=== PATIENT | male | born 1955 | race Caucasian/White ===

== ENCOUNTER → 2016-08-19 | Outpatient (CLI) | payer OTHER ==
[~2016-08-19] MED LIST: KETO10TA PO; MULTCHW PO; OXYC-57 PO
--- NOTE | 2016-08-19 11:51 | DIAGNOSTIC IMAGING REPORT ---
MRI LEFT SHOULDER NO CONTRAST CLINICAL HISTORY: Left shoulder pain COMPARISON STUDY: No previous studies for comparison. FINDINGS: Imaging was performed the sagittal, coronal, and axial planes. There is a small suprapatellar joint effusion. There is medial subluxation of the bicipital tendon. There are osteoarthritic changes present within the glenohumeral joint. There is moderate supraspinatus tendinopathy. No full-thickness tear is visualized. There is no tendinous retraction. There is a partial-thickness subscapularis tear. IMPRESSION: 1. No evidence of pathologic marrow replacement 2. Medial subluxation the bicipital tendon 3. Joint effusion 4. Supraspinatus tendinopathy. No evidence of full-thickness tear. No evidence of tendinous retraction. 5. Partial-thickness subscapularis tear Electronically signed by: Devin Ingram M.D. 08/19/2016 11:49 AM Dictated Date/Time: 08/19/2016 11:45 AM
== END | disposition home or self-care (01) ==
LOC: C.MRIBC 07:37
PROVIDERS: ATTEND Orthopaedic Surgery
DX: M25.511 Pain in right shoulder (principal)

== ENCOUNTER → 2016-09-23 | Outpatient (CLI) | payer OTHER ==
[2016-09-23 16:37] LABS: BASO % 0.7 %; BASO ABS # 0.04 K/uL (0-0.2); COMPLETE YES; EOS % 3.5 %; HEMATOCRIT 42.9 % (42-52); IG% 0.2 %; LYMPH % 40.1 %; MEAN CELL VOLUME 85.8 fL (80-100); MEAN CORPUSCULAR HGB CONC 32.6 g/dl (32-36); MEAN PLATELET VOLUME 10.2 fL (7.4-10.4); MONO % 12.7 %; NEUT % 42.8 %; PLATELET COUNT 219 K/uL (130-400); WHITE BLOOD COUNT 5.74 K/uL (4.8-10.8)
[2016-09-23 17:29] LABS: BLOOD UREA NITROGEN 18 mg/dl (7-18); BUN/CREATININE RATIO 14.7 (10-20); CALCIUM 9.1 mg/dl (8.5-10.1); CARBON DIOXIDE 29 mmol/L (21-32); CHLORIDE 107 mmol/L (98-107); GLUCOSE 122 mg/dl (70-99); POTASSIUM 3.8 mmol/L (3.5-5.1); SODIUM 142 mmol/L (136-145)
== END | disposition home or self-care (01) ==
LOC: C.CPL 16:12
PROVIDERS: ATTEND Orthopaedic Surgery
DX: M25.512 Pain in left shoulder (principal); Z01.812 Encounter for preprocedural laboratory examination; Z01.810 Encounter for preprocedural cardiovascular examination

== ENCOUNTER → 2016-10-08 | Day surgery (SDC) | payer OTHER ==
[2016-09-22 08:05] VITALS: Ht 180.3 cm; Wt 88.6 kg
[~2016-10-08] VITALS: Ht 180.3 cm; Wt 88.6 kg
[~2016-10-08] MED LIST changes: +ATROPINE SULFATE 0.1 MG/ML 5ML SYR IV PRN; +BUPIVACAINE/EPINEPHRINE 0.25% 1:200,000 30 ML VIAL ONE; +CEFAZOLIN 2000 MG/60 ML D5W IV SCH; +DEXAMETHASONE SOD INJ 4 MG/ML VIAL ONE; +EpHEDrine SULFATE 50MG/5ML SYR ONE; +EpHEDrine SULFATE INJ 50 MG/ML AMP ONE; +EpINEphrine INJ 1MG/ML AMP 1 MG/ML AMP ONE; +FENTANYL CITRATE INJ 50 MCG/1 ML 2 ML VIAL IV PRN; +FENTANYL CITRATE INJ 50 MCG/1 ML 2 ML VIAL ONE; +GLYCOPYRROLATE INJ 0.2 MG/ML VIAL ONE; +KETOROLAC TROMETHAMINE 30 MG/ML VIAL IV. PRN; +LABETALOL HCL IV 5 MG/ML 20ML IV PRN; +LACTATED RINGER'S 1000ML 1,000 ML IV SCH; +LIDOCAINE HCL 2% 2 ML VIAL (20MG/ML) ONE; +MIDAZOLAM HCL 1 MG/ML 2ML VIAL ONE; +NEOSTIGMINE METHYLSULFATE 5 MG/5 ML SYR ONE; +ONDANSETRON INJ 2 MG/ML 2 ML VIAL IV PRN; +ONDANSETRON INJ 2 MG/ML 2 ML VIAL ONE; +OXYCODONE/ACETAMINOPHEN 5-325 TAB PO PRN; +PHENYLEPHRINE HCL INJ 10 MG/ML VIAL ONE; +PROPOFOL IV EMULSION 10 MG/ML 20 ML VIAL IV ONE; +ROCURONIUM BROMIDE 10 MG/ML 5 ML VIAL ONE; +ROPIVACAINE 0.5% 5 MG/ML 30 ML VIAL ONE; +SODIUM CHLORIDE 0.9% 1000ML 1,000 ML IV SCH; +SUCCINYLCHOLINE CHLORIDE 20 MG/ML 10 ML VIAL IV ONE
--- NOTE | 2016-10-08 09:44 | History & Physical Bridge - [place] ---
H&P Re-Evaluation Bridge Note: I have examined the patient, reviewed the History & Physical and in the interval since the performance of the History & Physical I have noted the following changes of clinical significance: No changes noted
--- NOTE | 2016-10-08 12:58 | [facility] Post Operative Brief Note ---
Immediate Operative Summary Operative Date October 08, 2016. Pre-Operative Diagnosis Left Shoulder Biceps Tendonitis, Impingement Syndrome, Arthritis Post-Operative Diagnosis Same Procedure(s) Performed Left Shoulder Arthroscopy, Subacromial Decompression, Open Biceps Tenodesis Surgeon Dr. Jung Client Care Coordinator Surgeon(s) Ade Guevara PA-C Estimated Blood Loss 10 ML Findings as above Specimens None Complication(s) None Disposition Recovery Room / PACU
--- NOTE | 2016-10-08 13:08 | Discharge Instructions-SurgCtr ---
Discharge Instructions Date of Service October 08, 2016. Visit Reason for Visit: Left Shoulder Inflammation Rotator Cuff Tendon Discharge Discharge Diagnosis / Problem: SAME ABOVE Discharge Goals Goal(s): Decrease discomfort, Improve function Activity Recommendations Activity Limitations: as noted below Lifting Limitations: until after follow-up appointment Shower/Bathe: tomorrow Anesthesia . Post Anesthesia Instructions: If you have had General Anesthesia or IV Sedation: * Do not drive today. * Resume driving when surgeon permits. * Do not make important decisions or sign legal documents today. * Call surgeon for: 1. Temperature elevations greater than 101 degrees F. 2. Uncontrollable pain. 3. Excessive bleeding. 4. Persistent nausea and vomiting. 5. Medication intolerance (nausea, vomiting or rash). * For nausea and vomiting use only clear liquids such as: tea, soda, bouillon until nausea subsides, then gradually increase diet as tolerated. * If you have any concerns or questions, call your surgeon's office. If physician is unavailable and it is an emergency, call 911 or go to the nearest emergency room. . Instructions / Follow-Up Instructions / Follow-Up MEDICATIONS: * Resume previous medications unless instructed otherwise by your surgeon. * Always take pain medication on a full stomach or with food to avoid upset stomach. * Do not drink alcohol or drive while taking narcotics. * Ibuprofen or Tylenol may be taken if narcotic not needed. SPECIAL CARE INSTRUCTIONS: __ None _X_ Keep extremity elevated and iced x 48 hours; apply ice 20-30 minutes 8-10 times/day. May remove at night. _X_ Sling (WEAR NEEDED FOR COMFORT) _X_24 hrs/day __ Remove at night __ Shoulder Immobilizer __ 24 hrs/day __ Remove at night _X_ Dressing __ Maintain until seen in office, may shower with plastic over site _X_ Remove dressings in 24-48 hours and then may shower _X_ Cover incisions with band-aids after showering _X_ Do not remove steri-strips (THEY MAY FALL OFF ON THEIR OWN IN THE ARM- PIT) Call physician if chills or temperature rises above 102 degrees or pain unrelieved by prescribed pain medications at . . Diet Recommendations Home Diet: no limitations Fluid Restriction: None Procedures Procedures Performed: Left Shoulder Arthroscopy, Subacromial Decompression, Open Biceps Tenodesis Pending Studies Studies pending at discharge: no Work Instructions Return To Work: after follow-up Lifting Limitations: NO LIFTING WITH LEFT ARM Medical Emergencies . Who to Call and When: Medical Emergencies: If at any time you feel your situation is an emergency, please call 911 immediately. . Non-Emergent Contact Non-Emergency issues call your: Primary Care Provider Call Non-Emergent contact if: you have a fever, temperature is above 101.5 . . "Provider Documentation" section prepared by Matty Guevara. .
[2016-10-08 13:37] VITALS: TEMP 36.1
[2016-10-08 13:56] VITALS: BP 128/86; PULSE 75; O2SAT 95
--- NOTE | 2016-10-08 14:01 | OPERATIVE REPORT ---
DATE OF OPERATION: 10/08/2016 PREOPERATIVE DIAGNOSES: External impingement and biceps tendinopathy of the left shoulder. 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 PROCEDURES: Left shoulder diagnostic arthroscopy with extensive debridement including chondroplasty of the humeral head, acromioplasty and open subpectoral biceps tenodesis. SURGEON: Dr. Warren Jung. HOSPICE PATIENT CARE SECRETARY: Simon Guevara PA-C, whose assistance was necessary for positioning the arm and helping with instrumentation. ANESTHESIA: General with a left interscalene nerve block. COMPLICATIONS: None. CONDITION: Stable to PACU. INDICATIONS: Jorge L is a pleasant 61-year-old male who has been complaining about a 6-month history of left shoulder pain. MRI and clinical examination were diagnostic for severe external impingement and possible medially subluxated biceps tendon. After failing conservative treatment, he elected to undergo arthroscopy. DESCRIPTION OF PROCEDURE: On 10/08/2016, he arrived at [facility] for the above procedure. He was seen in the preoperative holding area and the operative extremity was identified and signed. He was given a preoperative antibiotic and a left interscalene nerve block. He was taken back to the operating room, laid on the table in supine position and put under general anesthesia. He was then put into the beachchair position. The left shoulder was prepped and draped in sterile fashion. Time-out was done and the patient and operative extremity was properly identified. A scope was introduced into the posterior portal. Diagnostic arthroscopy showed large area of grade 4 chondral damage on the center of the humeral head. The surrounding portion of the humeral head had no cartilage damage. There was no osteophyte formation. There was some flaking of the cartilage and it was flipping on the labrum through internal and external rotation. There was some fraying of the labrum. The biceps tendon was not torn, but there was a very enlarged biceps rosalba mechanism. The supraspinatus, infraspinatus, teres minor and subscapularis were all checked and intact. An anterior portal was made. A shaver was used to do a debridement of the intraarticular structures. The biceps tendon was arthroscopically tenotomized for later tenodesis. Time was then spent doing a chondroplasty of the loose cartilage fragments with no longer flip on the labrum. No other loose bodies were found. The scope was then put into the subacromial space. A lateral portal was made. A shaver was used to do a complete subacromial and subdeltoid bursectomy. An ablator was used to tease the coracoacromial ligament off the undersurface of the acromion and a 5-0 wilfred was used to complete an acromioplasty of a Bigliani type 3 acromion. A shaver was used to remove any excess debris. Significant time was spent inspecting the bursal side of the rotator cuff without any evidence of tear. Arthroscopic instrument was removed from the shoulder. Attention was turned to an open biceps tenodesis. A small incision was made over the inferior border of the pec major. Dissection was taken down through the fascia and the long head of the biceps tendon was delivered out of the wound. The tendon was then whipstitched at the anticipated level of tenodesis and the remainder of the tendon was discarded. A 6-mm hole was drilled in the bicipital groove and the biceps tendon was tenodesed with an Arthrex biceps button in a tension slide technique to deliver the tendon into the 6-mm hole. This gave good fixation. The tails were then tied. The wound was irrigated and closed with 3-0 Vicryl and running 3-0 Monocryl. Steri-strips were placed. Portal sites were closed with 3-0 nylon. He was then placed in a soft dressing and a regular arm sling. He was then extubated, transferred to [facility] and taken to the postanesthesia care unit in stable condition. He tolerated the procedure well. I attest to the content of the Intraoperative Record and any orders documented therein. Any exceptio ns are noted below.
--- NOTE | 2016-10-08 14:07 | Anesthesia Progress Nt - [facility] ---
Anesthesia Post Op Note Date & Time October 08, 2016 at 14:08 Vital Signs Vital Signs Past 12 Hours Date Time Temp Pulse Resp B/P Pulse Ox O2 Delivery O2 Flow Rate FiO2 10/08/16 13:56 75 18 128/86 95 Room Air 10/08/16 13:42 78 18 95 10/08/16 13:42 79 18 10/08/16 13:41 125/98 10/08/16 13:37 85 20 10/08/16 13:37 36.1 81 18 125/98 95 Room Air Mask 10/08/16 13:37 85 20 130/88 95 10/08/16 13:32 89 16 94 10/08/16 13:32 88 16 10/08/16 13:31 139/92 10/08/16 13:27 80 15 10/08/16 13:27 80 15 100 10/08/16 13:26 130/90 10/08/16 13:22 83 13 10/08/16 13:22 88 13 100 10/08/16 13:21 141/96 10/08/16 13:17 70 11 10/08/16 13:17 70 11 100 10/08/16 13:16 139/85 10/08/16 13:12 68 10 10/08/16 13:12 67 10 100 10/08/16 13:11 133/87 10/08/16 13:07 71 13 99 10/08/16 13:07 73 13 10/08/16 13:06 141/88 10/08/16 13:02 80 18 98 10/08/16 13:02 80 18 10/08/16 13:01 116/76 10/08/16 13:00 36.4 72 12 121/78 97 Mask 10/08/16 11:37 81 10/08/16 11:37 79 0 97 10/08/16 11:36 140/90 10/08/16 11:35 79 10/08/16 11:35 77 24 100 10/08/16 11:31 133/101 10/08/16 11:30 71 10/08/16 11:30 71 14 100 10/08/16 11:28 148/104 10/08/16 11:25 67 10/08/16 11:25 67 9 99 10/08/16 10:44 36.9 65 16 155/89 98 Room Air Notes Mental Status: alert / awake / arousable, participated in evaluation Pt Amnestic to Procedure: Yes Nausea / Vomiting: adequately controlled Pain: adequately controlled Airway Patency, RR, SpO2: stable & adequate BP & HR: stable & adequate Hydration State: stable & adequate Anesthetic Complications: no major complications apparent
== END | disposition home or self-care (01) ==
LOC: X.SURG 10:37
PROVIDERS: ATTEND Orthopaedic Surgery
DX: M25.812 Other specified joint disorders, left shoulder (principal); M75.82 Other shoulder lesions, left shoulder; M19.012 Primary osteoarthritis, left shoulder

== ENCOUNTER → 2017-04-09 | Outpatient (CLI) | payer OTHER ==
[~2017-04-09] MED LIST changes: -ATROPINE SULFATE 0.1 MG/ML 5ML SYR IV PRN; -BUPIVACAINE/EPINEPHRINE 0.25% 1:200,000 30 ML VIAL ONE; -CEFAZOLIN 2000 MG/60 ML D5W IV SCH; -DEXAMETHASONE SOD INJ 4 MG/ML VIAL ONE; -EpHEDrine SULFATE 50MG/5ML SYR ONE; -EpHEDrine SULFATE INJ 50 MG/ML AMP ONE; -EpINEphrine INJ 1MG/ML AMP 1 MG/ML AMP ONE; -FENTANYL CITRATE INJ 50 MCG/1 ML 2 ML VIAL IV PRN; -FENTANYL CITRATE INJ 50 MCG/1 ML 2 ML VIAL ONE; -GLYCOPYRROLATE INJ 0.2 MG/ML VIAL ONE; -KETOROLAC TROMETHAMINE 30 MG/ML VIAL IV. PRN; -LABETALOL HCL IV 5 MG/ML 20ML IV PRN; -LACTATED RINGER'S 1000ML 1,000 ML IV SCH; -LIDOCAINE HCL 2% 2 ML VIAL (20MG/ML) ONE; -MIDAZOLAM HCL 1 MG/ML 2ML VIAL ONE; -NEOSTIGMINE METHYLSULFATE 5 MG/5 ML SYR ONE; -ONDANSETRON INJ 2 MG/ML 2 ML VIAL IV PRN; -ONDANSETRON INJ 2 MG/ML 2 ML VIAL ONE; -OXYCODONE/ACETAMINOPHEN 5-325 TAB PO PRN; -PHENYLEPHRINE HCL INJ 10 MG/ML VIAL ONE; -PROPOFOL IV EMULSION 10 MG/ML 20 ML VIAL IV ONE; -ROCURONIUM BROMIDE 10 MG/ML 5 ML VIAL ONE; -ROPIVACAINE 0.5% 5 MG/ML 30 ML VIAL ONE; -SODIUM CHLORIDE 0.9% 1000ML 1,000 ML IV SCH; -SUCCINYLCHOLINE CHLORIDE 20 MG/ML 10 ML VIAL IV ONE
[2017-04-09 09:32] LABS: CHOLESTEROL/HDL RATIO 2.9
== END | disposition home or self-care (01) ==
LOC: C.LAB 06:50
PROVIDERS: ATTEND Family Medicine
DX: Z00.00 Encounter for general adult medical examination without abnormal findings (principal); Z13.220 Encounter for screening for lipoid disorders; Z11.59 Encounter for screening for other viral diseases; Z13.1 Encounter for screening for diabetes mellitus

== ENCOUNTER → 2017-12-22 | Outpatient (CLI) | payer OTHER ==
[~2017-12-22] MED LIST changes: -KETO10TA PO; -OXYC-57 PO
== END | disposition home or self-care (01) ==
LOC: C.LAB 07:59
PROVIDERS: ATTEND Family Medicine
DX: Z00.00 Encounter for general adult medical examination without abnormal findings (principal)